=== PATIENT | male | born 1975 | race Caucasian/White ===

== ENCOUNTER 2016-10-14 08:01 | Observation (INO) | payer OTHER ==
[2016-10-14 08:23] VITALS: BMI 21.5
[2016-10-14 08:34] VITALS: TEMP 99
[2016-10-14] MEDS ORDERED: Sodium Chloride 0.9% 1,000 ML IV STA (08:40)
[2016-10-14 08:56] LABS: BASO # 0.1 K/uL (0.0-0.2); BASO % 0.8 % (0.0-2.0); EOS # 0.1 K/uL (0.0-0.7); EOS % 1.1 % (0.0-4.0); HEMOGLOBIN 15.6 g/dL (12.0-18.0); LYMPH # 3.5 K/uL (1.0-4.3); LYMPH % 34.5 % (20.0-40.0); MEAN CELL VOLUME 89.3 fl (80.0-94.0); MEAN CORPUSCULAR HEMOGLOBIN 30.2 pg (27.0-31.0); MEAN CORPUSCULAR HGB CONC 33.8 g/dL (33.0-37.0); MEAN PLATELET VOLUME 8.3 fl (7.2-11.7); MONO # 0.8 K/uL (0.0-0.8); MONO % 7.8 % (0.0-10.0); NEUT # 5.6 K/uL (1.8-7.0); NEUT % 55.8 % (50.0-75.0); RBC 5.17 Mil/uL (4.40-5.90); RED CELL DISTRIBUTION WIDTH 13.7 % (11.5-14.5)
[2016-10-14 09:13] LABS: ALB/GLOB RATIO 1.5 (1.0-2.1); ALBUMIN 5.1 g/dL (3.5-5.0); ALT/SGPT 24 U/L (21-72); AST/SGOT 30 U/L (17-59); BLOOD UREA NITROGEN 6 mg/dl (9-20); CALCIUM 9.3 mg/dL (8.4-10.2); GFR AFRICAN-AMERICAN > 60; GFR NON-AFRICAN AMERICAN > 60
[2016-10-14 09:19] LABS: SALICYLATE < 1.0 mg/dl
[2016-10-14 09:20] LABS: ACETAMINOPHEN < 10.0 ug/ml (10.0-30.0)
[2016-10-14 09:41] VITALS: RESP 20; O2SAT 96
[2016-10-14 09:59] VITALS: BP 131/97
--- NOTE | 2016-10-14 10:19 | ED PDOC ---
HPI: Psych/Substance Abuse Time Seen by Provider: 10/14/16 08:21 Chief Complaint (Nursing): Substance Abuse Chief Complaint (Provider): Substance Abuse History Per: Patient History/Exam Limitations: no limitations Current Symptoms Are (Timing): Still Present Suicide/Self Injury Attempted (Context): None Modifying Factor(s): Alcohol, Other (Pratik and Adderall) Associated Symptoms: Anxiety Additional History Per: EMS Additional Complaint(s): 41 year old male brought in by EMS presents to ED for substance abuse and has a past medical history of substance abuse. Patient admits to drinking, taking pratik early this morning, as well as 2 tablets of Adderall. Patient appears anxious, agitated, uneasy, and restless. Confirms that drug abuse was for fun, not as an attempted suicide. (-) suicidal ideation, homicidal ideation, and all other complaints. Past Medical History Reviewed: Historical Data, Nursing Documentation, Vital Signs Vital Signs: Last Vital Signs Temp 99 F 10/14/16 08:29 Pulse 136 H 10/14/16 09:59 Resp 20 10/14/16 09:59 BP 131/97 H 10/14/16 09:59 Pulse Ox 96 10/14/16 09:40 - Medical History PMH: Anxiety, Depression, HTN Denies: Chronic Kidney Disease - Surgical History Surgical History: Tonsillectomy - Family History Family History: States: Unknown Family Hx - Social History Alcohol: Social Drugs: Prescription medications (Adderall), Other (Pratik) - Allergies Allergies/Adverse Reactions: Allergies Allergy/AdvReac Type Severity Reaction Status Date / Time No Known Allergies Allergy Verified 10/14/16 08:28 Review of Systems ROS Statement: Except As Marked, All Systems Reviewed And Found Negative Psych: Positive for: Anxiety. Negative for: Suicidal ideation, Other ( homicidal ideation) Physical Exam - Reviewed Nursing Documentation Reviewed: Yes Vital Signs Reviewed: Yes - Physical Exam Appears: Positive for: Uncomfortable (restless) Head Exam: Positive for: ATRAUMATIC Skin: Positive for: Normal Color, Warm, Diaphoresis Eye Exam: Positive for: Normal appearance, EOMI, PERRL Cardiovascular/Chest: Positive for: Regular Rate, Rhythm, Tachycardia Respiratory: Positive for: Normal Breath Sounds. Negative for: Respiratory Distress Gastrointestinal/Abdominal: Positive for: Normal Exam, Soft. Negative for: Tenderness Neurologic/Psych: Positive for: Alert, Oriented, Mood/Affect (appears agitated, not calm). Negative for: Motor/Sensory Deficits - Laboratory Results Result Diagrams: 10/14/16 08:40 10/14/16 08:40 - ECG ECG: Positive for: Interpreted By Me, Viewed By Me ECG Rhythm: Positive for: Normal QRS, Normal ST Segment, Sinus Rhythm, Sinus Tachycardia, Nonspecific Changes Rate: 130 O2 Sat by Pulse Oximetry: 96 (RA) Pulse Ox Interpretation: Normal Medical Decision Making Medical Decision Makin Initial impression: substance abuse, sympathomimetic syndrome Initial plan: * EKG * Acetaminophen * EtOH serum * Labs * CPK * UDrug Screen * Salicylate * Ativan 2mg IV * Re-eval Scribe Attestation: Documented by Nicole Basilio acting as a scribe for Danielle Segura. Scribe Attestation: All medical record entries made by the Scribe were at my direction and personally dictated by me. I have reviewed the chart and agree that the record accurately reflects my personal performance of the history, physical exam, medical decision making, and the department course for this patient. I have also personally directed, reviewed, and agree with the discharge instructions and disposition. ED OBSERVATION Date of observation admission: 10/14/16 Time of observation admission: 10:00 - Observation admission statement Patient is being placed in observation because:: Substance abuse - Goals of Observation Goals of observation are:: Clinical sobriety Disposition - Clinical Impression Clinical Impression: Polysubstance abuse - Patient ED Disposition Is Patient to be Admitted: Transfer of Care - Disposition Disposition: Transfer of Care Disposition Time: 15:00 Condition: FAIR Patient Signed Over To: Tammie May
[2016-10-14 11:00] VITALS: PULSE 130
[2016-10-14 14:04] LABS: BARBITURATES, UR NEGATIVE (NEGATIVE); BENZODIAZEPINES, UR NEGATIVE (NEGATIVE); OPIATES, UR NEGATIVE (NEGATIVE); PHENCYCLIDINE, UR NEGATIVE (NEGATIVE)
--- NOTE | 2016-10-14 20:39 | ED PDOC ---
- Laboratory Results Result Diagrams: 10/14/16 08:40 10/14/16 08:40 - ECG O2 Sat by Pulse Oximetry: 96 (RA) - Progress ED Course And Treament: 3p Rec'd endorsement from Dr Segura. polysubstance abuse and acutely intoxicated. Pending sobriety. 6p On reeval, will somewhat anxious and tachycardic. Addn'l IVF ordered and valium po. 7p Pt stable for DC. Tachycardia improved. Ambulating without difficulty with no signs of withdrawal. Detox lists given. Re-evaluation Time: 19:00 Condition: Improved Disposition - Clinical Impression Clinical Impression: Polysubstance abuse - POA Present On Arrival: None - Disposition Disposition: Routine/Home Disposition Time: 10:00 Condition: IMPROVED
--- NOTE | 2016-10-16 06:58 | CARD ---
APPROVED REPORT EKG Measurement Heart [id number] PA 126P33 [id number] <Conclusion> Sinus tachycardia Septal infarct, age undetermined Abnormal ECG
--- NOTE | 2016-10-19 06:53 | CARD ---
APPROVED REPORT EKG Measurement Heart [id number] [place] [id number] [id number] <Conclusion> Sinus tachycardia Septal infarct, age undetermined Abnormal ECG
== END 2016-10-14 20:39 | disposition home or self-care (01) ==
LOC: H.ER 08:01 → H.EROBSV 10:00
PROVIDERS: ADMIT Emergency Medicine; ATTEND Emergency Medicine
DX: F10.129 Alcohol abuse with intoxication, unspecified (principal); F41.9 Anxiety disorder, unspecified; F32.9 Major depressive disorder, single episode, unspecified; I10 Essential (primary) hypertension

== ENCOUNTER 2017-04-24 14:56 | Emergency (ER) | payer OTHER ==
[2017-04-24 14:56] VITALS: BMI 21.5
--- NOTE | 2017-04-24 15:59 | ED PDOC ---
HPI: CCC, URI, Sore Throat Time Seen by Provider: 04/24/17 15:04 Chief Complaint (Nursing): Cough, Cold, Congestion Past Medical History Vital Signs: Last Vital Signs Temp 97.2 F L 04/24/17 15:00 Pulse 110 H 04/24/17 15:00 Resp 16 04/24/17 15:00 BP 161/91 H 04/24/17 15:00 Pulse Ox 100 04/24/17 15:00 - Medical History PMH: Anxiety, Depression, HTN Denies: Chronic Kidney Disease - Surgical History Surgical History: Tonsillectomy - Family History Family History: States: Unknown Family Hx - Home Medications Home Medications: Ambulatory Orders Medication Instructions Recorded amLODIPine [Norvasc] 5 mg PO DAILY #30 tab 04/24/17 - Allergies Allergies/Adverse Reactions: Allergies Allergy/AdvReac Type Severity Reaction Status Date / Time No Known Allergies Allergy Verified 04/24/17 15:00 - ECG O2 Sat by Pulse Oximetry: 100 Disposition - Clinical Impression Clinical Impression: Medication refill, Viral illness - Disposition Disposition: Routine/Home Disposition Time: 15:39 Condition: STABLE Prescriptions: amLODIPine [Norvasc] 5 mg PO DAILY #30 tab Instructions: Viral Syndrome (ED) Forms: [employer] [facility] (Montenegrin), [facility] ED School/Work Excuse
[2017-04-24 16:03] VITALS: BP 124/74; PULSE 94; RESP 17; TEMP 98; O2SAT 99
== END 2017-04-24 16:03 | disposition home or self-care (01) ==
LOC: H.ER 14:56
DX: Z76.0 Encounter for issue of repeat prescription (principal); R05 Cough

== ENCOUNTER 2017-07-06 14:04 | Emergency (ER) | payer OTHER ==
[2017-07-06 14:04] VITALS: BMI 21.5
[2017-07-06 14:25] VITALS: BP 121/77; PULSE 96; RESP 18; TEMP 98; O2SAT 100
--- NOTE | 2017-07-06 15:17 | ED PDOC ---
HPI: Allergic Reaction Time Seen by Provider: 07/06/17 14:32 Chief Complaint (Nursing): Abnormal Skin Integrity Chief Complaint (Provider): Abnormal Skin Integrity History Per: Patient History/Exam Limitations: no limitations Onset/Duration Of Symptoms: Days (x2 weeks) Current Symptoms Are (Timing): Still Present Additional Complaint(s): 42 year old male presents to the emergency department with a complaint of a rash that started on the top of his gomez of the left leg that spread to the right leg and later developed on his chest for 2 weeks. Reports it intermittently itches but does not have pain. Denies fever, taking any new medications, use of new to lotions, soaps, detergent, foods, poison JENNIFER or [place] , or any outdoor activities such as the park and fowler. Past Medical History Reviewed: Historical Data, Nursing Documentation, Vital Signs Vital Signs: Last Vital Signs Temp 98 F 07/06/17 14:14 Pulse 96 H 07/06/17 14:14 Resp 18 07/06/17 14:14 BP 121/77 07/06/17 14:14 Pulse Ox 100 07/06/17 14:14 - Medical History PMH: Anxiety, Depression, HTN Denies: Chronic Kidney Disease - Surgical History Surgical History: Tonsillectomy - Family History Family History: States: Unknown Family Hx - Home Medications Home Medications: Ambulatory Orders Medication Instructions Recorded amLODIPine [Norvasc] 5 mg PO DAILY #30 tab 04/24/17 Cetirizine HCl [Zyrtec] 10 mg PO DAILY #30 capsule 07/06/17 Hydrocortisone Adeline 0.2% Cr 1 applic TOP BID #1 tube 07/06/17 [Westcort] - Allergies Allergies/Adverse Reactions: Allergies Allergy/AdvReac Type Severity Reaction Status Date / Time No Known Allergies Allergy Verified 04/24/17 15:00 Review of Systems ROS Statement: Except As Marked, All Systems Reviewed And Found Negative (As per HPI, otherwise negative) Constitutional: Negative for: Fever, Other (new medications, use of new to lotions, soaps, detergent, foods, poison JENNIFER or [place], or any outdoor activities such as the park and fowler. ) Skin: Positive for: Rash (notedto the shins on legs bilaterally and chest region. ) Physical Exam - Reviewed Nursing Documentation Reviewed: Yes Vital Signs Reviewed: Yes - Physical Exam Appears: Positive for: No Acute Distress Head Exam: Positive for: NORMAL INSPECTION Skin: Positive for: Warm (Erythematous raised lesions of varying sizes measuring about 1-2 cm each. Diffusely to the anterior aspect of bilateral lower extremities from the knee to ankles and on the chest.), Dry Eye Exam: Negative for: Conjunctival injection, Other (Chemosis) ENT: Positive for: Normal ENT Inspection (Mucous membranes moist), Pharynx Is ( Clear). Negative for: Pharyngeal Erythema, Tonsillar Exudate, Other (Lip or tongue swelling) Neck: Positive for: Normal, Supple. Negative for: Pain On Movement Of Neck Cardiovascular/Chest: Positive for: Regular Rate, Rhythm. Negative for: Murmur Respiratory: Positive for: Normal Breath Sounds (equal bilaterally). Negative for: Rales, Rhonchi, Stridor, Wheezing Gastrointestinal/Abdominal: Positive for: Normal Exam, Soft. Negative for: Tenderness, Distended, Other (HSM) Lymphatic: Positive for: Normal Exam. Negative for: Adenopathy Neurologic/Psych: Positive for: Alert, Oriented (x3) - ECG O2 Sat by Pulse Oximetry: 100 Pulse Ox Interpretation: Normal Disposition - Clinical Impression Clinical Impression: Rash Counseled Patient/Family Regarding: Diagnosis, Need For Followup - Disposition Referrals: Jaun Gomez MD [Staff Provider] - Disposition Time: 15:05 Condition: STABLE Additional Instructions: Thank you for letting us take care of you today. You were treated for rash. The emergency medical care you received today was directed at your acute symptoms. If you were prescribed any medication, please fill it and take as directed. It may take several days for your symptoms to resolve. Return to the Emergency Department if your symptoms worsen, do not improve, or if you have any other problems. Please call one of the physicians/clinics you have been referred to that are listed on the Patient Visit Information form that is included in your discharge packet. Bring any paperwork you were given at discharge with you along with any medications you are taking to your follow up visit. Our treatment cannot replace ongoing medical care by a primary care provider (PCP) outside of the emergency department. Thank you for allowing the [facility] team to be part of your care today. Prescriptions: Cetirizine HCl [Zyrtec] 10 mg PO DAILY #30 capsule Hydrocortisone Adeline 0.2% Cr [Westcort] 1 applic TOP BID #1 tube Instructions: Skin Rash (DC) Forms: [employer] ([place]), [facility] ED School/Work Excuse Medical Decision Making Medical Decision Making: Time: 1432 Initial impression: Rash Initial plan: --Examination of skin Time: 1505 Patient is medically stable for discharge and given Rx for Zyrtec 10 mg and Westcort 0.2 %. Advised to follow up with Dr. Jaun Gomez MD in 1-2 days without fail. Advised to take medication as prescribed. Return to the emergency room at any time for any new or worsening symptoms. Patient states he fully agrees with and understands discharge instructions. States that he agrees with the plan and disposition. Verbalized and repeated discharge instructions and plan. I have given the patient opportunity to ask any additional questions. Clinical Impression: Rash Scribe Attestation: Documented by Elo Castillo, acting as a scribe for Hillary Solis PA-C Provider Scribe Attestation: All medical record entries made by the Scribe were at my direction and personally dictated by me. I have reviewed the chart and agree that the record accurately reflects my personal performance of the history, physical exam, medical decision making, and the department course for this patient. I have also personally directed, reviewed, and agree with the discharge instructions and disposition.
== END 2017-07-06 15:12 | disposition home or self-care (01) ==
LOC: H.ER 14:04
DX: R21 Rash and other nonspecific skin eruption (principal); F32.9 Major depressive disorder, single episode, unspecified; F41.9 Anxiety disorder, unspecified; I10 Essential (primary) hypertension

== ENCOUNTER 2017-09-29 07:09 | Emergency (ER) | payer OTHER ==
[2017-09-29 07:09] VITALS: BMI 21.5
[2017-09-29] MEDS ORDERED: Sodium Chloride 0.9% 1,000 ML IV STA ×2 (07:44→08:38)
--- NOTE | 2017-09-29 07:52 | ED PDOC ---
HPI: Psych/Substance Abuse Time Seen by Provider: 09/29/17 07:31 Chief Complaint (Nursing): Psychiatric Evaluation Chief Complaint (Provider): anxiety History Per: Patient History/Exam Limitations: no limitations Onset/Duration Of Symptoms: Mins (prior to arrival) Current Symptoms Are (Timing): Still Present Additional Complaint(s): 42 year old male presents to the ED via EMS complaining of having anxiety prior to arrival. Patient states he took one of his prescription adderall pills that he had not taken in about a year last night at 20:00, after ingesting two beers and then half a pill six hours later. This morning he felt as if he was having a "panic attack" and came in for further evaluation. Denies si/hi. PMD: none provided Past Medical History Reviewed: Historical Data, Nursing Documentation, Vital Signs Vital Signs: Last Vital Signs Temp 99.2 F 09/29/17 07:16 Pulse 149 H 09/29/17 07:16 Resp 22 09/29/17 07:16 BP 169/109 H 09/29/17 07:16 Pulse Ox 100 09/29/17 07:16 - Medical History PMH: Anxiety, Depression, HTN, Seizures (nocturnal seizure disorder) Denies: Chronic Kidney Disease - Surgical History Surgical History: Tonsillectomy - Family History Family History: States: Unknown Family Hx - Social History Current smoker - smoking cessation education provided: Yes SMOKER/PACKS PER DAY:: 1 Alcohol: Social Drugs: Cannabis, Prescription medications ( Adderall), Other ("pratik", Xanax) - Home Medications Home Medications: Ambulatory Orders Medication Instructions Recorded amLODIPine [Norvasc] 5 mg PO DAILY #30 tab 04/24/17 Cetirizine HCl [Zyrtec] 10 mg PO DAILY #30 capsule 07/06/17 Hydrocortisone Adeline 0.2% Cr 1 applic TOP BID #1 tube 07/06/17 [Westcort] - Allergies Allergies/Adverse Reactions: Allergies Allergy/AdvReac Type Severity Reaction Status Date / Time No Known Allergies Allergy Verified 04/24/17 15:00 Review of Systems ROS Statement: Except As Marked, All Systems Reviewed And Found Negative Psych: Positive for: Anxiety. Negative for: Suicidal ideation (or homicidal) Physical Exam - Reviewed Nursing Documentation Reviewed: Yes Vital Signs Reviewed: Yes - Physical Exam Appears: Positive for: No Acute Distress (but appearing anxious) Head Exam: Positive for: ATRAUMATIC, NORMOCEPHALIC Skin: Positive for: Normal Color, Warm, Dry Eye Exam: Positive for: Normal appearance Neck: Positive for: Normal, Painless ROM Cardiovascular/Chest: Positive for: Tachycardia. Negative for: Murmur Respiratory: Positive for: Normal Breath Sounds. Negative for: Accessory Muscle Use, Respiratory Distress Gastrointestinal/Abdominal: Positive for: Normal Exam, Soft. Negative for: Tenderness Extremity: Positive for: Normal ROM Neurologic/Psych: Positive for: Alert (and awake), Oriented (x3). Negative for : Motor/Sensory Deficits - Laboratory Results Result Diagrams: 09/29/17 08:00 09/29/17 11:51 - ECG O2 Sat by Pulse Oximetry: 100 (RA) Pulse Ox Interpretation: Normal Medical Decision Making Medical Decision Making: Initial Impression: prescription medication abuse Time: 07:43 Initial Plan: --EKG --Acetaminophen --Alcohol --CMP --Drug Screen --Salicylate --Urine dipstick --CBC with differential --Ativan 1mg IVP --Sodium chloride 0.9% 1000ml IV --Urinalysis 12:53 Patient is cleared by crisis workers and ready to be discharged. Scribe Attestation: Documented by Hayley Bean, acting as a scribe for Fany Johnson MD. Provider Scribe Attestation: All medical entries made by the Scribe were at my direction and personally dictated by me. I have reviewed the chart and agree that the record accurately reflects my personal performance of the history, physical exam, medical decision making, and the department course for this patient. I have also personally directed, reviewed, and agree with the discharge instructions and disposition. Disposition - Clinical Impression Clinical Impression: Anxiety, Adderall use disorder, mild, abuse - Disposition Disposition Time: 14:00 Condition: IMPROVED Additional Instructions: FOLLOW-UP WITH PMD WITHIN 2 DAYS FOR REEVALUATION. DISCONTINUE ADDERALL! Instructions: Anxiety, Adult (DC), Prescription Drug Misuse Forms: [employer] ([place])
[2017-09-29 08:20] LABS: BASO % 0.4 % (0.0-2.0); EOS % 0.4 % (0.0-4.0); HEMOGLOBIN 14.6 g/dL (12.0-18.0); LYMPH # 1.9 K/uL (1.0-4.3); LYMPH % 17.8 % (20.0-40.0); MEAN CELL VOLUME 87.1 fl (80.0-94.0); MEAN CORPUSCULAR HEMOGLOBIN 29.6 pg (27.0-31.0); MEAN PLATELET VOLUME 8.1 fl (7.2-11.7); MONO # 0.8 K/uL (0.0-0.8); MONO % 7.6 % (0.0-10.0); NEUT # 7.7 K/uL (1.8-7.0); NEUT % 73.8 % (50.0-75.0); RBC 4.93 Mil/uL (4.40-5.90); RED CELL DISTRIBUTION WIDTH 13.7 % (11.5-14.5); WHITE BLOOD COUNT 10.4 K/uL (4.8-10.8)
[2017-09-29 08:30] LABS: ACETAMINOPHEN < 10.0 ug/ml (10.0-30.0); ALB/GLOB RATIO 1.3 (1.0-2.1); ALBUMIN 4.8 g/dL (3.5-5.0); ALT/SGPT 27 U/L (21-72); AST/SGOT 26 U/L (17-59); BLOOD UREA NITROGEN 8 mg/dl (9-20); CALCIUM 8.9 mg/dL (8.4-10.2); GFR AFRICAN-AMERICAN > 60; GFR NON-AFRICAN AMERICAN > 60; SALICYLATE < 1.0 mg/dl
[2017-09-29 09:07] VITALS: RESP 19
[2017-09-29 09:13] LABS: URINE BILIRUBIN NEGATIVE (NEGATIVE); URINE BLOOD NEGATIVE (NEGATIVE); URINE CLARITY CLEAR (Clear); URINE COLOR COLORLESS (YELLOW); URINE GLUCOSE (UA) NEG (Normal); URINE LEUKOCYTE ESTERASE NEG Leu/uL (Negative); URINE PROTEIN NEGATIVE (NEGATIVE); URINE UROBILINOGEN 0.2-1.0 mg/dL (0.2-1.0)
[2017-09-29 09:37] LABS: BARBITURATES, UR NEGATIVE (NEGATIVE); BENZODIAZEPINES, UR NEGATIVE (NEGATIVE); OPIATES, UR NEGATIVE (NEGATIVE); PHENCYCLIDINE, UR NEGATIVE (NEGATIVE)
[2017-09-29 12:45] LABS: BLOOD UREA NITROGEN 7 mg/dl (9-20); CALCIUM 8.2 mg/dL (8.4-10.2); GFR AFRICAN-AMERICAN > 60; GFR NON-AFRICAN AMERICAN > 60
[2017-09-29 14:06] VITALS: BP 128/78; PULSE 89; TEMP 97
--- NOTE | 2017-10-01 11:30 | CARD ---
APPROVED REPORT EKG Measurement Heart [id number] 138P36 [id number] <Conclusion> Sinus tachycardia Possible Left atrial enlargement Septal infarct, age undetermined Abnormal ECG
[2017-10-01 15:36] VITALS: O2SAT 100
== END 2017-09-29 14:06 | disposition home or self-care (01) ==
LOC: H.ER 07:09
DX: F41.9 Anxiety disorder, unspecified (principal); F15.20 Other stimulant dependence, uncomplicated; I10 Essential (primary) hypertension; F32.9 Major depressive disorder, single episode, unspecified; F17.210 Nicotine dependence, cigarettes, uncomplicated
CPT/HCPCS: 80048; 80053; 80320; 80324; 80329; 80345; 80346; 80349; 80353; 80358; 80361; 81003; 83992; 85025; 93005; 96374; 99284; J2060; J7030

== ENCOUNTER 2018-04-21 10:28 | Emergency (ER) | payer OTHER ==
[2018-04-21 10:33] VITALS: BMI 25.0
[2018-04-21 10:35] VITALS: BP 120/75; PULSE 98; RESP 20; TEMP 98.2; O2SAT 98
--- NOTE | 2018-04-21 11:45 | ED PDOC ---
History of Present Illness History of Present Illness: 42 y/o male with no signifcant PMHx but is a chronic smoker presents to the ED complaining of fever and chill associated with mild abdominal discomfort and diarrhea/loose stool, onset two days ago. Patient has not taken temperature. Patient reports of receiving his flu vaccination from his PMD. Patient is a heavy smoker and states after taking cigarettes, he coughs for about one minute. Patient states that is his baseline. Otherwise, patient offers no other complaints including vomiting, rash and myalgia. PMD: Dr. Daniel ([facility]) HPI: Influenza Time Seen by Provider: 04/21/18 10:49 Chief Complaint: Cough, Cold, Congestion Chief Complaint (Provider): Cough, Cold, Congestion History Per: Patient Exam Limitations: no limitations Onset/Duration Of Symptoms: Days (x2) Past Medical History Reviewed: Historical Data, Nursing Documentation, Vital Signs Vital Signs: Last Vital Signs Temp 98.2 F 04/21/18 10:34 Pulse 98 H 04/21/18 10:34 Resp 20 04/21/18 10:34 BP 120/75 04/21/18 10:34 Pulse Ox 98 04/21/18 10:34 - Medical History PMH: Anxiety, Depression, HTN, Seizures (nocturnal seizure disorder) Denies: Diabetes, Hepatitis, HIV, Chronic Kidney Disease, Sexually Tr ansmitted Disease - Surgical History Surgical History: Tonsillectomy - Family History Family History: States: Unknown Family Hx - Social History Current smoker - smoking cessation education provided: Yes (heavy chronic) - Home Medications Home Medications: Ambulatory Orders Medication Instructions Recorded RX: amLODIPine [Norvasc] 5 mg PO DAILY #30 tab 04/24/17 Alprazolam [Xanax] 0.5 mg PO HS PRN 04/21/18 RX: Levetiracetam [Roweepra] 2,000 mg PO DAILY 04/21/18 - Allergies Allergies/Adverse Reactions: Allergies Allergy/AdvReac Type Severity Reaction Status Date / Time No Known Allergies Allergy Verified 04/24/17 15:00 Review of Systems ROS Statement: Except As Marked, All Systems Reviewed And Found Negative Constitutional: Positive for: Fever, Chills. Negative for: Other (myalgia) Gastrointestinal: Positive for: Abdominal Pain (mild), Diarrhea (loose stool). Negative for: Vomiting Skin: Negative for: Rash Physical Exam - Reviewed Nursing Documentation Reviewed: Yes Vital Signs Reviewed: Yes - Physical Exam Appears: Positive for: No Acute Distress Head Exam: Positive for: ATRAUMATIC, NORMOCEPHALIC Skin: Positive for: Normal Color, Warm, Dry Eye Exam: Positive for: Normal appearance, EOMI, PERRL Neck: Positive for: Normal, Painless ROM Cardiovascular/Chest: Positive for: Regular Rate, Rhythm. Negative for: Murmur Respiratory: Positive for: Normal Breath Sounds. Negative for: Respiratory Distress Gastrointestinal/Abdominal: Positive for: Normal Exam, Soft. Negative for: Tenderness Extremity: Positive for: Normal ROM. Negative for: Deformity Neurologic/Psych: Positive for: Alert, Oriented. Negative for: Motor/Sensory Deficits Medical Decision Making Medical Decision Making: Time: 1124 A/P: Patient with symptomatic fever and chills, however has not taken temperature. -- CXR -- Vitals now within normal limits. -- Patient apperas well appearing -- CXR Clear -- Patient does ot appear to have the flu at this time. Patient advised to increase rest and water intake while symptoms last. Patient given Tylenol/Motrin for fever, Immodeum for diarrhea and sudafed for congestion. Patient advised follow up with PMD. Patient declined work note and states he "works for himself" and the next contract is one week from today. Scribe Attestation: Documented by Duane Savage, acting as a scribe for Deborah Cleveland MD, Provider Scribe Attestation: All medical record entries made by the Scribe were at my direction and personally dictated by me. I have reviewed the chart and agree that the record accurately reflects my personal performance of the history, physical exam, medical decision making, and the department course for this patient. I have also personally directed, reviewed, and agree with the discharge instructions and disposition. - ECG O2 Sat by Pulse Oximetry: 98 Disposition - Clinical Impression Clinical Impression: Viral illness - Disposition Disposition: Routine/Home Disposition Time: 11:10 Condition: IMPROVED Additional Instructions: Take motrin or Tylenol for fever and body aches. Take Imodium for diarrhea. Take Sudafed for head/nasal congestion. Increase rest and water intake while symptoms last. Follow up with primary doctor in one week. Instructions: Cough, Runny Nose, and the Common Cold (DC), Viral Syndrome (DC) Forms: [employer] [facility] (Somali) Print Language: CUBAN
--- NOTE | 2018-04-21 13:05 | RAD ---
Date of service: 04/21/2018 HISTORY: cough in chronic COMPARISON: No prior. TECHNIQUE: Chest PA and lateral FINDINGS: LUNGS: No active pulmonary disease. PLEURA: No significant pleural effusion identified. No pneumothorax apparent. CARDIOVASCULAR: No aortic atherosclerotic calcification present. Normal cardiac size. No pulmonary vascular congestion. OSSEOUS STRUCTURES: No significant abnormalities. VISUALIZED UPPER ABDOMEN: Normal. OTHER FINDINGS: None. IMPRESSION: No active disease.
== END 2018-04-21 11:59 | disposition home or self-care (01) ==
LOC: H.ER 10:28
DX: B34.9 Viral infection, unspecified (principal); F17.210 Nicotine dependence, cigarettes, uncomplicated